=== PATIENT | female | born 1950 | race Caucasian/White ===

== ENCOUNTER 2024-02-09 15:19 | Emergency (ER) | payer MEDICARE, OTHER ==
[2024-02-09] MEDS: Sodium Chloride 0.9% 1,000 ML IV ONE (15:48)
[2024-02-09 15:53] LABS: APPEARANCE,URINE SLT CLOUDY; COLOR,URINE ORANGE; GLUCOSE,URINE NEGATIVE (NEGATIVE); KETONES,URINE 15 mg/dL (NEGATIVE); LEUKOCYTE ESTERASE,URINE SMALL (NEGATIVE); NITRITE,URINE NEGATIVE (NEGATIVE); OCCULT BLOOD,URINE NEGATIVE (NEGATIVE); PROTEIN,URINE 100 mg/dL (NEGATIVE)
[2024-02-09] MEDS: Ketorolac 30 MG/ML SDV IVPUSH ONE (15:55)
[2024-02-09 16:21] LABS: BILIRUBIN,URINE MODERATE (NEGATIVE)
[2024-02-09 16:23] LABS: BACTERIA,URINE FEW (NEGATIVE); EPITHELIAL CELLS,URINE FEW (NONE-FEW); MUCUS,URINE MODERATE (NONE-MOD); RBC,URINE 0-2 (0-2/HPF); WBC,URINE 35-40 (0-5/HPF)
[2024-02-09 16:35] LABS: CORONAVIRUS COVID-19 NAA NEGATIVE (NEGATIVE); INFLUENZA A NAA NEGATIVE (NEGATIVE); INFLUENZA B NAA NEGATIVE (NEGATIVE); RESPIRATORY SYNCYTIAL VIR NAA NEGATIVE (NEGATIVE)
[2024-02-09 16:38] LABS: A/G RATIO 0.8 (0.9-1.6); BILIRUBIN TOTAL 0.9 mg/dL (0.2-1.0); CALCIUM 8.5 mg/dL (8.5-10.1); CARBON DIOXIDE,CO2 21.6 mmol/L (21.0-32.0); CREATININE 1.1 mg/dL (0.6-1.0); EST CRCL DRUG DOSING (CG) 39.33 mL/min; MAGNESIUM 1.9 mg/dL (1.8-2.4); POTASSIUM,K 3.8 mmol/L (3.5-5.1); PROTEIN TOTAL,TP 6.6 g/dL (6.4-8.2)
[2024-02-09 16:58] LABS: BASOPHILS ABSOLUTE AUTO 0.01 K/uL (0.00-0.20); BASOPHILS PERCENT AUTO 0.3 % (0.0-1.0); HEMATOCRIT 41.1 % (37.0-47.0); HEMOGLOBIN 14.4 g/dL (12.0-16.0); IMMATURE GRAN ABSOLUTE AUTO 0.04 K/uL (0.00-0.05); IMMATURE GRAN PERCENT AUTO 1.1 % (0.0-0.4); LYMPHOCYTES PERCENT AUTO 8.3 % (24.0-44.0); MEAN CORPUSCULAR HEMOGLOBIN 31.9 pg (28.0-32.0); MEAN CORPUSCULAR VOLUME 90.9 fL (83.0-99.0); MEAN PLATELET VOLUME 12.5 fL (9.4-12.3); MONOCYTES ABSOLUTE AUTO 0.11 K/uL (0.00-0.80); NEUTROPHILS ABSOLUTE AUTO 3.15 K/uL (1.80-7.70); NEUTROPHILS PERCENT AUTO 87.3 % (41.0-71.0); RED BLOOD CELL COUNT 4.52 M/uL (4.10-5.30); WHITE BLOOD CELL COUNT,WBC 3.61 K/uL (3.9-11.3)
[2024-02-09 17:00] LABS: PLATELET COUNT,PLT 51 K/uL (150-400)
[2024-02-09] MEDS: cefTRIAXone 1 GM in Sodium Chloride 0.9% 50 ML IV ONE (17:20)
[2024-02-09 17:40] LABS: INR 1.04 (0.86-1.11); PTT,PARTIAL THROMBOPLSTIN TIME 31.8 SEC (23.9-30.7)
[2024-02-09] MEDS: Iopamidol 755 MG/ML 500 ML Multipack Bottle IVPUSH STA (18:53)
[2024-02-09] MEDS: Acetaminophen 500 MG Tab PO ONE (19:17)
[2024-02-09 21:24] VITALS: BP 132/55; PULSE 82
== END 2024-02-09 21:44 | disposition home or self-care (01) ==
LOC: MW.ED 15:19
DX: N39.0 Urinary tract infection, site not specified (principal); R91.1 Solitary pulmonary nodule; D69.6 Thrombocytopenia, unspecified; E03.9 Hypothyroidism, unspecified; Z79.899 Other long term (current) drug therapy; Z88.2 Allergy status to sulfonamides; Z88.8 Allergy status to other drugs, medicaments and biological substances; Z88.1 Allergy status to other antibiotic agents; Z75.8 Other problems related to medical facilities and other health care
CPT/HCPCS: 0241U; 36415; 71045; 74177; 80053; 81001; 83605; 83735; 85025; 85610; 85730; 87040; 87086; 96361; 96365; 96375; 99284; A9270; J0696; J1885; J3490; J7030; Q9967

== ENCOUNTER 2024-02-12 15:50 | Emergency (ER) | payer MEDICARE, OTHER ==
[2024-02-12 16:49] LABS: HEMATOCRIT 34.5 % (37.0-47.0); HEMOGLOBIN 12.2 g/dL (12.0-16.0); MEAN CORPUSCULAR HEMOGLOBIN 31.4 pg (28.0-32.0); MEAN CORPUSCULAR HGB CONC 35.4 g/dL (32.0-36.0); MEAN CORPUSCULAR VOLUME 88.7 fL (83.0-99.0); RED BLOOD CELL COUNT 3.89 M/uL (4.10-5.30); WHITE BLOOD CELL COUNT,WBC 2.99 K/uL (3.9-11.3)
[2024-02-12 17:25] LABS: PLATELET COUNT,PLT 8 K/uL (150-400)
[2024-02-12 17:29] LABS: A/G RATIO 0.8 (0.9-1.6); ALBUMIN 2.6 g/dL (3.4-5.0); BILIRUBIN TOTAL 0.7 mg/dL (0.2-1.0); CALCIUM 8.6 mg/dL (8.5-10.1); CARBON DIOXIDE,CO2 24.9 mmol/L (21.0-32.0); CREATININE 0.8 mg/dL (0.6-1.0); EST CRCL DRUG DOSING (CG) 63.18 mL/min; POTASSIUM,K 3.4 mmol/L (3.5-5.1); PROTEIN TOTAL,TP 5.7 g/dL (6.4-8.2)
[2024-02-12 17:40] LABS: LYMPHOCYTES ABSOLUTE MAN 1.79 K/uL (1.00-4.80); LYMPHOCYTES PERCENT MAN 60 % (24-44); MONOCYTES ABSOLUTE MAN 0.27 K/uL (0.00-0.80); MONOCYTES PERCENT MAN 9 % (0-8); SEG NEUTROPHILS PERCENT MAN 30 % (41-71)
[2024-02-12 17:41] LABS: METAMYELOCYTE ABSOLUTE MAN 0.03; METAMYELOCYTE PERCENT MAN 1 %
[2024-02-12 18:49] VITALS: BP 120/63; PULSE 72
== END 2024-02-12 18:49 ==
LOC: MW.ED 15:50
DX: D69.6 Thrombocytopenia, unspecified (principal); E03.9 Hypothyroidism, unspecified; Z90.710 Acquired absence of both cervix and uterus; Z79.899 Other long term (current) drug therapy; Z88.2 Allergy status to sulfonamides; Z88.8 Allergy status to other drugs, medicaments and biological substances; Z88.1 Allergy status to other antibiotic agents
CPT/HCPCS: 36415; 80053; 85025; 99284

== ENCOUNTER 2024-02-20 11:22 | Inpatient (IN) | payer MEDICARE, OTHER ==
[2024-02-20 12:33] LABS: BASOPHILS ABSOLUTE AUTO 0.01 K/uL (0.00-0.20); BASOPHILS PERCENT AUTO 0.1 % (0.0-1.0); HEMATOCRIT 36.8 % (37.0-47.0); IMMATURE GRAN ABSOLUTE AUTO 0.21 K/uL (0.00-0.05); IMMATURE GRAN PERCENT AUTO 2.2 % (0.0-0.4); LYMPHOCYTES ABSOLUTE AUTO 0.55 K/uL (1.00-4.80); LYMPHOCYTES PERCENT AUTO 5.7 % (24.0-44.0); MEAN CORPUSCULAR HEMOGLOBIN 31.8 pg (28.0-32.0); MEAN CORPUSCULAR HGB CONC 35.3 g/dL (32.0-36.0); MEAN PLATELET VOLUME 12.8 fL (9.4-12.3); MONOCYTES ABSOLUTE AUTO 0.94 K/uL (0.00-0.80); MONOCYTES PERCENT AUTO 9.8 % (0.0-8.0); NEUTROPHILS ABSOLUTE AUTO 7.87 K/uL (1.80-7.70); NEUTROPHILS PERCENT AUTO 82.2 % (41.0-71.0); PLATELET COUNT,PLT 111 K/uL (150-400); RED BLOOD CELL COUNT 4.09 M/uL (4.10-5.30); WHITE BLOOD CELL COUNT,WBC 9.58 K/uL (3.9-11.3)
[2024-02-20] MEDS: Acetaminophen 325 MG Tab PO ONE (12:47)
[2024-02-20] MEDS: Sodium Chloride 0.9% 2.5 ML Syringe FLUSH PRN (12:48)
[2024-02-20] MEDS: Sodium Chloride 0.9% 10 ML Syringe FLUSH PRN (12:48)
[2024-02-20 13:01] LABS: A/G RATIO 0.5 (0.9-1.6); ALBUMIN 2.5 g/dL (3.4-5.0); BILIRUBIN TOTAL 1.9 mg/dL (0.2-1.0); CALCIUM 8.1 mg/dL (8.5-10.1); CARBON DIOXIDE,CO2 24.9 mmol/L (21.0-32.0); CREATININE 1.2 mg/dL (0.6-1.0); EST CRCL DRUG DOSING (CG) 36.05 mL/min; PROTEIN TOTAL,TP 7.1 g/dL (6.4-8.2)
[2024-02-20 13:02] LABS: CORONAVIRUS COVID-19 NAA NEGATIVE (NEGATIVE); INFLUENZA A NAA NEGATIVE (NEGATIVE); INFLUENZA B NAA NEGATIVE (NEGATIVE); RESPIRATORY SYNCYTIAL VIR NAA NEGATIVE (NEGATIVE)
[2024-02-20 13:14] LABS: LACTIC ACID 1.9 mmol/L (0.4-2.0)
[2024-02-20 15:01] LABS: BILIRUBIN,URINE NEGATIVE (NEGATIVE); COLOR,URINE YELLOW; GLUCOSE,URINE NEGATIVE (NEGATIVE); KETONES,URINE NEGATIVE (NEGATIVE); LEUKOCYTE ESTERASE,URINE TRACE (NEGATIVE); NITRITE,URINE POSITIVE (NEGATIVE); OCCULT BLOOD,URINE NEGATIVE (NEGATIVE); PH,URINE 5.5 (5.0-8.0); PROTEIN,URINE NEGATIVE (NEGATIVE)
[2024-02-20 15:02] LABS: APPEARANCE,URINE HAZY
[2024-02-20 15:18] LABS: BACTERIA,URINE FEW (NEGATIVE); EPITHELIAL CELLS,URINE OCCASIONAL (NONE-FEW); RBC,URINE 0-2 (0-2/HPF)
[2024-02-20] MEDS: Iopamidol 755 MG/ML 500 ML Multipack Bottle IVPUSH ONE (15:21)
[2024-02-20] MEDS: Sodium Chloride 0.9% 1,000 ML IV STA (15:41)
[2024-02-20] MEDS ORDERED: Sodium Chloride 0.9% 2.5 ML Syringe FLUSH PRN (16:26)
[2024-02-20] MEDS ORDERED: Sodium Chloride 0.9% 10 ML Syringe FLUSH PRN (16:26)
[2024-02-20] MEDS ORDERED: Ondansetron 4 MG/2 ML SDV IVPUSH PRN (16:26)
[2024-02-20] MEDS: Sodium Chloride 0.9% 1,000 ML IV SCH (18:39)
[2024-02-20] MEDS: Cefepime 1 GM in Sodium Chloride 0.9% 50 ML IV SCH (18:39)
[2024-02-20] MEDS: Cholecalciferol (Vitamin D3) 25 MCG Tab PO SCH (19:24)
[2024-02-20] MEDS: Calcium Carbonate 500 MG Tab.Chew PO SCH ×2 (19:33→20:40)
[2024-02-20] MEDS: Latanoprost 0.005% Ophth Soln 2.5 ML Bottle EYEBOTH SCH (20:40)
[2024-02-20] MEDS: Docusate Sodium 100 MG Cap PO SCH (20:41)
[2024-02-21] MEDS ORDERED: Sodium Chloride 0.9% 1,000 ML IV ONE (03:42)
[2024-02-21] MEDS ORDERED: Cefepime 1 GM in Sodium Chloride 0.9% 50 ML IV ONE ×2 (04:43→16:38)
[2024-02-21] MEDS ORDERED: Acetaminophen 325 MG Tab ONE (04:51)
[2024-02-21] MEDS ORDERED: Calcium Carbonate 500 MG Tab.Chew PO SCH (09:00)
[2024-02-21] MEDS ORDERED: LIOTHYRONINE 5 MCG PO SCH (09:00)
[2024-02-21] MEDS ORDERED: Sodium Chloride 0.9% 100 ML IV ONE (11:07)
[2024-02-21 16:16] LABS: A/G RATIO 0.5 (0.9-1.6); ALBUMIN 1.9 g/dL (3.4-5.0); BILIRUBIN TOTAL 1.5 mg/dL (0.2-1.0); CALCIUM 7.5 mg/dL (8.5-10.1); CARBON DIOXIDE,CO2 20.3 mmol/L (21.0-32.0); EST CRCL DRUG DOSING (CG) 43.27 mL/min; MAGNESIUM 1.8 mg/dL (1.8-2.4); POTASSIUM,K 3.7 mmol/L (3.5-5.1); PROTEIN TOTAL,TP 5.6 g/dL (6.4-8.2)
[2024-02-21 18:00] LABS: HEMATOCRIT 32.5 % (37.0-47.0); HEMOGLOBIN 11.6 g/dL (12.0-16.0); MEAN CORPUSCULAR HEMOGLOBIN 31.6 pg (28.0-32.0); MEAN CORPUSCULAR HGB CONC 35.7 g/dL (32.0-36.0); MEAN CORPUSCULAR VOLUME 88.6 fL (83.0-99.0); MEAN PLATELET VOLUME 12.8 fL (9.4-12.3); PLATELET COUNT,PLT 54 K/uL (150-400); RED BLOOD CELL COUNT 3.67 M/uL (4.10-5.30); WHITE BLOOD CELL COUNT,WBC 4.13 K/uL (3.9-11.3)
[2024-02-21 18:24] LABS: BAND ABSOLUTE MAN 0.45; BAND PERCENT MAN 11 %; LYMPHOCYTES ABSOLUTE MAN 0.37 K/uL (1.00-4.80); LYMPHOCYTES PERCENT MAN 9 % (24-44); METAMYELOCYTE ABSOLUTE MAN 0.08; METAMYELOCYTE PERCENT MAN 2 %; MONOCYTES ABSOLUTE MAN 0.25 K/uL (0.00-0.80); MONOCYTES PERCENT MAN 6 % (0-8); SEG NEUTROPHILS ABSOLUTE MAN 2.97 K/uL (1.80-7.70); SEG NEUTROPHILS PERCENT MAN 72 % (41-71)
[2024-02-21] MEDS: Levothyroxine 50 MCG Tab PO SCH (20:05)
[2024-02-21] MEDS: Acetaminophen 325 MG Tab ONE ×2 (20:07)
[2024-02-21] MEDS: Sodium Chloride 0.9% 100 ML ONE (20:07)
[2024-02-21] MEDS: Doxycycline 100 MG Vial ONE (20:07)
[2024-02-21] MEDS ORDERED: Acetaminophen 325 MG Tab PO PRN (20:11)
[2024-02-21] MEDS: Doxycycline 100 MG in Sodium Chloride 0.9% 100 ML IV SCH (21:29)
[2024-02-22 06:59] LABS: HEMATOCRIT 31.7 % (37.0-47.0); MEAN CORPUSCULAR HEMOGLOBIN 31.4 pg (28.0-32.0); MEAN CORPUSCULAR HGB CONC 34.7 g/dL (32.0-36.0); MEAN CORPUSCULAR VOLUME 90.6 fL (83.0-99.0); MEAN PLATELET VOLUME 12.2 fL (9.4-12.3); PLATELET COUNT,PLT 27 K/uL (150-400); WHITE BLOOD CELL COUNT,WBC 3.22 K/uL (3.9-11.3)
[2024-02-22 07:29] LABS: A/G RATIO 0.4 (0.9-1.6); ALBUMIN 1.6 g/dL (3.4-5.0); BILIRUBIN TOTAL 0.9 mg/dL (0.2-1.0); CALCIUM 7.7 mg/dL (8.5-10.1); CARBON DIOXIDE,CO2 21.7 mmol/L (21.0-32.0); CREATININE 0.8 mg/dL (0.6-1.0); EST CRCL DRUG DOSING (CG) 54.08 mL/min; MAGNESIUM 1.9 mg/dL (1.8-2.4); POTASSIUM,K 3.4 mmol/L (3.5-5.1); PROTEIN TOTAL,TP 5.4 g/dL (6.4-8.2)
[2024-02-22 07:36] LABS: LYMPHOCYTES ABSOLUTE MAN 1.22 K/uL (1.00-4.80); LYMPHOCYTES PERCENT MAN 38 % (24-44); MONOCYTES ABSOLUTE MAN 0.16 K/uL (0.00-0.80); MONOCYTES PERCENT MAN 5 % (0-8); SEG NEUTROPHILS ABSOLUTE MAN 1.84 K/uL (1.80-7.70); SEG NEUTROPHILS PERCENT MAN 57 % (41-71)
[2024-02-22 08:02] LABS: BORDETELLA PARAPERT IS1001 Not Detected (Not Detected)
[2024-02-22] MEDS: Potassium Chloride 20 MEQ Tab.ER PO ONE (11:35)
[2024-02-22] MEDS: Pantoprazole 40 MG in Sodium Chloride 0.9% 10 ML IVPUSH SCH (12:58)
[2024-02-23 06:13] LABS: HEMATOCRIT 33.6 % (37.0-47.0); HEMOGLOBIN 11.6 g/dL (12.0-16.0); MEAN CORPUSCULAR HEMOGLOBIN 31.2 pg (28.0-32.0); MEAN CORPUSCULAR HGB CONC 34.5 g/dL (32.0-36.0); MEAN CORPUSCULAR VOLUME 90.3 fL (83.0-99.0); MEAN PLATELET VOLUME 13.5 fL (9.4-12.3); PLATELET COUNT,PLT 36 K/uL (150-400); RED BLOOD CELL COUNT 3.72 M/uL (4.10-5.30); WHITE BLOOD CELL COUNT,WBC 5.07 K/uL (3.9-11.3)
[2024-02-23 06:35] LABS: CALCIUM 7.9 mg/dL (8.5-10.1); CARBON DIOXIDE,CO2 21.5 mmol/L (21.0-32.0); CREATININE 0.9 mg/dL (0.6-1.0); EST CRCL DRUG DOSING (CG) 48.07 mL/min; POTASSIUM,K 4.1 mmol/L (3.5-5.1)
[2024-02-23 06:57] LABS: LYMPHOCYTES ABSOLUTE MAN 2.48 K/uL (1.00-4.80); LYMPHOCYTES PERCENT MAN 49 % (24-44)
[2024-02-23 06:58] LABS: EOSINOPHILS ABSOLUTE MAN 0.05 K/uL (0.00-0.45); EOSINOPHILS PERCENT MAN 1 % (0-6); MONOCYTES ABSOLUTE MAN 0.35 K/uL (0.00-0.80); MONOCYTES PERCENT MAN 7 % (0-8); SEG NEUTROPHILS ABSOLUTE MAN 2.18 K/uL (1.80-7.70); SEG NEUTROPHILS PERCENT MAN 43 % (41-71)
[2024-02-23] MEDS: predniSONE 20 MG Tab PO SCH (12:39)
[2024-02-24] MEDS: Liothyronine 5 MCG Tablet PO SCH (06:25)
[2024-02-24 06:36] LABS: BASOPHILS ABSOLUTE AUTO 0.01 K/uL (0.00-0.20); BASOPHILS PERCENT AUTO 0.2 % (0.0-1.0); HEMATOCRIT 29.3 % (37.0-47.0); HEMOGLOBIN 10.6 g/dL (12.0-16.0); IMMATURE GRAN ABSOLUTE AUTO 0.03 K/uL (0.00-0.05); IMMATURE GRAN PERCENT AUTO 0.5 % (0.0-0.4); LYMPHOCYTES ABSOLUTE AUTO 2.34 K/uL (1.00-4.80); LYMPHOCYTES PERCENT AUTO 38.2 % (24.0-44.0); MEAN CORPUSCULAR HEMOGLOBIN 31.8 pg (28.0-32.0); MEAN CORPUSCULAR HGB CONC 36.2 g/dL (32.0-36.0); MEAN PLATELET VOLUME 12.5 fL (9.4-12.3); MONOCYTES ABSOLUTE AUTO 0.37 K/uL (0.00-0.80); NEUTROPHILS ABSOLUTE AUTO 3.38 K/uL (1.80-7.70); NEUTROPHILS PERCENT AUTO 55.1 % (41.0-71.0); PLATELET COUNT,PLT 55 K/uL (150-400); RED BLOOD CELL COUNT 3.33 M/uL (4.10-5.30); WHITE BLOOD CELL COUNT,WBC 6.13 K/uL (3.9-11.3)
[2024-02-24 07:07] LABS: A/G RATIO 0.5 (0.9-1.6); ALBUMIN 1.9 g/dL (3.4-5.0); BILIRUBIN TOTAL 0.8 mg/dL (0.2-1.0); CALCIUM 7.7 mg/dL (8.5-10.1); CARBON DIOXIDE,CO2 23.1 mmol/L (21.0-32.0); CREATININE 0.8 mg/dL (0.6-1.0); EST CRCL DRUG DOSING (CG) 54.08 mL/min; POTASSIUM,K 3.9 mmol/L (3.5-5.1); PROTEIN TOTAL,TP 5.9 g/dL (6.4-8.2)
[2024-02-24 12:51] VITALS: BP 154/85; PULSE 84
[2024-02-26 05:08] LABS: CMV QNT BY NAAT, INTERP,PL Not Detected (Not Detected); CMV QNT BY NAAT, IU/ML,PL Not Detected; CMV QNT BY NAAT, LOGIU/ML,PL Not Detected log IU/mL
== END 2024-02-24 12:45 | disposition home or self-care (01) | DRG 683 ==
LOC: MW.ED 11:22 → MW.MS 16:10 → OBSVTOIN 02-21 23:09
PROVIDERS: ADMIT Family Medicine; ATTEND Family Medicine
DX: N17.9 Acute kidney failure, unspecified (principal); D69.6 Thrombocytopenia, unspecified; A69.20 Lyme disease, unspecified; D69.3 Immune thrombocytopenic purpura; Z75.8 Other problems related to medical facilities and other health care; N39.0 Urinary tract infection, site not specified; Z88.0 Allergy status to penicillin; E03.9 Hypothyroidism, unspecified; I95.9 Hypotension, unspecified; I10 Essential (primary) hypertension; E86.0 Dehydration; R50.9 Fever, unspecified; B96.20 Unspecified Escherichia coli [E. coli] as the cause of diseases classified elsewhere; Z85.3 Personal history of malignant neoplasm of breast; Z88.2 Allergy status to sulfonamides; Z88.8 Allergy status to other drugs, medicaments and biological substances; Z88.1 Allergy status to other antibiotic agents; Z79.899 Other long term (current) drug therapy; Z90.710 Acquired absence of both cervix and uterus; Z90.89 Acquired absence of other organs; Z90.13 Acquired absence of bilateral breasts and nipples
CPT/HCPCS: 0241U; 36415; 70450; 70551; 71045; 71250; 74177; 80048; 80053; 81001; 82728; 83605; 83735; 85007; 85025; 85027; 86308; 86618; 87040; 87086; 87088; 87103; 87186; 87389; 87486; 87497; 87529; 87581; 87633; 96360; 99285; 96361; 96365; 96366; 96367; 96376; A9270-GY; G0378; J0133; J0692; J2470; J3490; J7030; Q9967